=== PATIENT | male | born 1965 | race American Indian/Alaskan Native ===

== ENCOUNTER 2017-04-05 12:22 | Emergency (ER) | payer OTHER ==
--- NOTE | 2017-04-05 14:16 | Emergency Department Report ---
Entered by BRANDIE MALAVE, acting as scribe for LAURITA VALDIVIA PA. Chief Complaint: Abdominal Pain Stated Complaint: ABD/BACK/PAIN Time Seen by Provider: 04/05/17 14:07 - HPI History of Present Illness: Pt c/o intermittent 8/10, aching lower abdominal pain for 2 weeks. Notes 1 emesis episode. Patient also c/o an acute episode of chronic low back pain Reports urinary urgency. Denies frequency. Reports nausea. Denies diarrhea. Denies any chest pain or shortness of breath. Denies penile discharge Denies chest pain and SOB. 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 Denies having a PCP - ROS Review of Systems: All system are negative unless stated in HPI above. - Exam Vital Signs: Vital Signs 04/05/17 13:13 Temperature 98.2 F Pulse Rate 60 Respiratory 18 Rate Blood Pressure 129/84 O2 Sat by Pulse 99 Oximetry Physical Exam: General: well nourished, well developed, 51 year old male in no acute distress and nontoxic in appearance Abdomen: Soft, normal bowel sounds in all quadrants and negative CVA tenderness bilaterally. Tender to palpation below naval. No guarding or rebound. Lungs: Clear to auscultation bilaterally, no rhonchi, wheezes, or rales. Normal work of breathing. No use of accessory muscles Cardiovascular: S1-S2, regular rate, regular rhythm. No murmurs. MSE screening note: Focused history and physical exam performed. Due to findings the following was ordered: see below ED Medical Decision Making - Medical Decision Making MDM: Patient screened by provider in triage area. Appropriate protocol initiated. Patient to be seen by MD on main ED side. ED Disposition for MSE Condition: Stable This documentation as recorded by the scribe,BRANDIE MALAVE,accurately reflects the service I personally performed and the decisions made by me,LAURITA VALDIVIA PA.
[2017-04-05 15:01] LABS: Basophils % (Auto) 0.4 % (0.0-1.8); Eosinophils % (Auto) 0.9 % (0.0-4.3); Hematocrit 51.8 % (35.5-45.6); Hemoglobin 17.1 gm/dl (11.8-15.2); Mean Corpuscular HGB Conc 33 % (32-34); Mean Corpuscular Hemoglobin 33 pg (28-32); Mean Corpuscular Volume 98 fl (84-94); Platelet Count 223 K/mm3 (140-440); Red Blood Count 5.27 M/mm3 (3.65-5.03); Red Cell Distribution Width 14.7 % (13.2-15.2); White Blood Count 5.4 K/mm3 (4.5-11.0)
[2017-04-05 15:22] LABS: Alanine Aminotransferase 12 units/L (7-56); Albumin 4.5 g/dL (3.9-5); Albumin/Globulin Ratio 1.4 %; Alkaline Phosphatase 62 units/L (35-129); Anion Gap 15 mmol/L; BUN/Creatinine Ratio 11.66; Blood Urea Nitrogen 14 mg/dL (9-20); Calcium 9.4 mg/dL (8.4-10.2); Carbon Dioxide 30 mmol/L (22-30); Glucose 83 mg/dL (75-100); Lipase 93 units/L (13-60); Potassium 4.3 mmol/L (3.6-5.0); Sodium 141 mmol/L (137-145); Total Protein 7.8 g/dL (6.3-8.2)
[2017-04-05 15:44] LABS: Bilirubin,Urine NEG (Negative); Blood,Urine NEG (Negative); Ketones,Urine NEG (Negative); Leukocyte Esterase,Urine NEG (Negative); Mucus,Urine FEW /HPF; Nitrite,Urine NEG (Negative); Protein,Urine <15 mg/dL mg/dL (Negative); Urobilinogen,Urine < 2.0 mg/dL (<2.0); WBC,Urine < 1.0 /HPF (0.0-6.0)
[2017-04-05] MEDS ORDERED: NACL 0.9% 1000 ML 1,000 ML IV ONE ×2 (17:57→18:01)
[2017-04-05] MEDS ORDERED: MORPHINE IV ONE (17:57)
[2017-04-05] MEDS ORDERED: ZOFRAN IV ONE ×2 (17:57→18:01)
--- NOTE | 2017-04-05 18:06 | Emergency Department Report ---
ED Abdominal Pain HPI - General Chief Complaint: Abdominal Pain Stated Complaint: ABD/BACK/PAIN Time Seen by Provider: 04/05/17 17:51 Source: patient, family Mode of arrival: Ambulatory Limitations: No Limitations - History of Present Illness MD Complaint: abdominal pain -: Gradual, week(s) (two) Location: diffuse Radiation: back Migration to: no migration Severity: moderate Severity scale (0 -10): 6 Quality: sharp Associated Symptoms: nausea, vomiting. denies: diarrhea - Related Data Home Medications Medication Instructions Recorded Confirmed Last Taken Carisoprodol [Soma] 250 mg PO DAILY 04/28/15 04/05/17 Unknown Oxycodone HCl [OxyCONTIN ER TAB] 30 mg PO Q4-6H 04/28/15 04/05/17 Unknown Previous Rx's Medication Instructions Recorded Last Taken Type Hydrocodone/Ibuprofen [Vicoprofen 1 each PO QHS #10 tablet 04/28/15 Unknown Rx 7.5-200 mg TAB] methOCARBAMOL [Robaxin TAB] 500 mg PO BID #20 tab 04/28/15 Unknown Rx Ondansetron [Zofran Odt] 4 mg PO Q4-6H PRN #14 tab.rapdis 04/05/17 Unknown Rx traMADol [Ultram 50 MG tab] 50 mg PO Q4HR PRN #14 tablet 04/05/17 Unknown Rx Allergies Allergy/AdvReac Type Severity Reaction Status Date / Time No Known Allergies Allergy Unverified 04/28/15 14:52 ED Review of Systems ROS: Stated complaint: ABD/BACK/PAIN Other details as noted in HPI Comment: All other systems reviewed and negative Constitutional: denies: chills, fever Respiratory: denies: cough, shortness of breath Cardiovascular: denies: chest pain Gastrointestinal: abdominal pain, nausea, vomiting, constipation. denies: diarrhea, hematochezia Neurological: denies: headache, weakness, numbness ED Past Medical Hx - Past Medical History Previous Medical History?: Yes Hx Liver Disease: Yes (HEP C) Hx Renal Disease: Yes Additional medical history: L1-L2 HERNIATED DISC - Surgical History Past Surgical History?: Yes Additional Surgical History: liver - Social History Smoking Status: Never Smoker Substance Use Type: Alcohol - Medications Home Medications: Home Medications Medication Instructions Recorded Confirmed Last Taken Type Carisoprodol [Soma] 250 mg PO DAILY 04/28/15 04/05/17 Unknown History Hydrocodone/Ibuprofen [Vicoprofen 1 each PO QHS #10 tablet 04/28/15 04/05/17 Unknown Rx 7.5-200 mg TAB] Oxycodone HCl [OxyCONTIN ER TAB] 30 mg PO Q4-6H 04/28/15 04/05/17 Unknown History methOCARBAMOL [Robaxin TAB] 500 mg PO BID #20 tab 04/28/15 04/05/17 Unknown Rx Ondansetron [Zofran Odt] 4 mg PO Q4-6H PRN #14 tab.rapdis 04/05/17 Unknown Rx traMADol [Ultram 50 MG tab] 50 mg PO Q4HR PRN #14 tablet 04/05/17 Unknown Rx ED Physical Exam - General Limitations: No Limitations General appearance: alert, in no apparent distress - Head Head exam: Present: atraumatic - Neck Neck exam: Present: normal inspection. Absent: meningismus - Respiratory Respiratory exam: Present: normal lung sounds bilaterally. Absent: wheezes, rales, rhonchi - Cardiovascular Cardiovascular Exam: Present: regular rate, normal rhythm, normal heart sounds - GI/Abdominal GI/Abdominal exam: Present: soft, tenderness, hypoactive bowel sounds. Absent: distended, guarding, rebound, rigid, mass, pulsatile mass, hernia - Back Exam Back exam: Present: normal inspection. Absent: tenderness - Neurological Exam Neurological exam: Present: alert, oriented X3, CN II-XII intact - Skin Skin exam: Present: warm, dry ED Course Vital Signs 04/05/17 04/05/17 04/05/17 13:13 17:03 17:04 Temperature 98.2 F Pulse Rate 60 Respiratory 18 Rate Blood Pressure 129/84 O2 Sat by Pulse 99 97 99 Oximetry 04/05/17 04/05/17 04/05/17 17:07 17:09 17:11 Temperature Pulse Rate Respiratory Rate Blood Pressure 151/90 151/90 151/90 O2 Sat by Pulse 96 97 97 Oximetry 04/05/17 04/05/17 04/05/17 17:13 17:15 17:16 Temperature Pulse Rate Respiratory 18 Rate Blood Pressure 151/90 152/92 O2 Sat by Pulse 95 97 99 Oximetry 04/05/17 04/05/17 04/05/17 17:17 17:19 17:21 Temperature Pulse Rate Respiratory Rate Blood Pressure 152/92 152/92 152/92 O2 Sat by Pulse 97 96 98 Oximetry 04/05/17 04/05/17 04/05/17 17:23 17:25 17:27 Temperature Pulse Rate Respiratory Rate Blood Pressure 152/92 152/92 152/92 O2 Sat by Pulse 97 97 97 Oximetry 04/05/17 04/05/17 04/05/17 17:29 17:30 17:33 Temperature Pulse Rate Respiratory Rate Blood Pressure 152/92 153/90 153/90 O2 Sat by Pulse 96 98 98 Oximetry 04/05/17 04/05/17 04/05/17 17:35 17:37 18:30 Temperature Pulse Rate Respiratory Rate Blood Pressure 153/90 153/90 157/97 O2 Sat by Pulse 99 98 81 L Oximetry 04/05/17 04/05/17 04/05/17 18:33 18:35 18:37 Temperature Pulse Rate Respiratory Rate Blood Pressure 157/97 157/97 157/97 O2 Sat by Pulse 98 96 96 Oximetry 04/05/17 04/05/17 04/05/17 18:39 18:41 18:43 Temperature Pulse Rate Respiratory Rate Blood Pressure 157/97 157/97 157/97 O2 Sat by Pulse 97 98 97 Oximetry 04/05/17 04/05/17 04/05/17 18:45 18:47 18:49 Temperature Pulse Rate Respiratory Rate Blood Pressure 160/100 160/100 161/93 O2 Sat by Pulse 96 96 97 Oximetry 04/05/17 04/05/17 04/05/17 18:51 18:53 18:55 Temperature Pulse Rate Respiratory Rate Blood Pressure 161/93 161/93 161/93 O2 Sat by Pulse 97 96 97 Oximetry 04/05/17 04/05/17 04/05/17 18:57 18:59 19:00 Temperature Pulse Rate Respiratory Rate Blood Pressure 161/93 161/93 149/94 O2 Sat by Pulse 98 95 97 Oximetry 04/05/17 04/05/17 04/05/17 19:03 19:04 19:07 Temperature Pulse Rate Respiratory Rate Blood Pressure 149/94 161/93 149/94 O2 Sat by Pulse 95 95 95 Oximetry 04/05/17 04/05/17 04/05/17 19:09 19:11 19:13 Temperature Pulse Rate Respiratory Rate Blood Pressure 149/94 149/94 149/94 O2 Sat by Pulse 97 93 96 Oximetry 04/05/17 04/05/17 04/05/17 19:15 19:17 19:19 Temperature Pulse Rate Respiratory Rate Blood Pressure 137/92 137/92 149/94 O2 Sat by Pulse 93 95 95 Oximetry 04/05/17 04/05/17 04/05/17 19:21 19:23 19:25 Temperature Pulse Rate Respiratory Rate Blood Pressure 149/94 149/94 149/94 O2 Sat by Pulse 96 94 96 Oximetry 04/05/17 04/05/17 04/05/17 19:27 19:29 19:30 Temperature Pulse Rate Respiratory Rate Blood Pressure 149/94 149/94 131/88 O2 Sat by Pulse 94 95 94 Oximetry 04/05/17 04/05/17 04/05/17 19:33 19:35 19:37 Temperature Pulse Rate Respiratory Rate Blood Pressure 131/88 131/88 131/88 O2 Sat by Pulse 96 96 95 Oximetry 04/05/17 04/05/17 04/05/17 19:39 19:41 19:43 Temperature Pulse Rate Respiratory Rate Blood Pressure 131/88 131/88 131/88 O2 Sat by Pulse 98 97 96 Oximetry 04/05/17 04/05/17 04/05/17 19:45 19:47 19:49 Temperature Pulse Rate Respiratory Rate Blood Pressure 140/94 140/94 140/94 O2 Sat by Pulse 95 95 96 Oximetry 04/05/17 04/05/17 04/05/17 19:51 19:53 19:55 Temperature Pulse Rate Respiratory Rate Blood Pressure 140/94 140/94 140/94 O2 Sat by Pulse 95 97 97 Oximetry 04/05/17 04/05/17 04/05/17 19:57 19:59 20:00 Temperature Pulse Rate Respiratory Rate Blood Pressure 140/94 140/94 132/87 O2 Sat by Pulse 96 96 96 Oximetry 04/05/17 04/05/17 04/05/17 20:03 20:05 20:07 Temperature Pulse Rate Respiratory Rate Blood Pressure 132/87 132/87 132/87 O2 Sat by Pulse 95 98 96 Oximetry 04/05/17 04/05/17 04/05/17 20:09 20:11 20:13 Temperature Pulse Rate Respiratory Rate Blood Pressure 132/87 132/87 132/87 O2 Sat by Pulse 97 96 94 Oximetry 04/05/17 04/05/17 04/05/17 20:15 20:17 20:18 Temperature Pulse Rate Respiratory Rate Blood Pressure 128/86 128/86 128/86 O2 Sat by Pulse 94 97 95 Oximetry 04/05/17 04/05/17 04/05/17 20:46 20:49 20:51 Temperature Pulse Rate Respiratory Rate Blood Pressure 128/86 146/95 146/95 O2 Sat by Pulse 95 98 Oximetry 04/05/17 04/05/17 04/05/17 20:53 20:55 21:02 Temperature Pulse Rate Respiratory Rate Blood Pressure 146/95 146/95 146/95 O2 Sat by Pulse 96 97 98 Oximetry 04/05/17 04/05/17 04/05/17 21:05 21:07 21:09 Temperature Pulse Rate Respiratory Rate Blood Pressure 136/92 136/92 136/92 O2 Sat by Pulse 98 97 98 Oximetry 04/05/17 04/05/17 04/05/17 21:11 21:13 21:15 Temperature Pulse Rate Respiratory Rate Blood Pressure 136/92 136/92 148/94 O2 Sat by Pulse 95 98 98 Oximetry 04/05/17 04/05/17 21:17 21:19 Temperature Pulse Rate Respiratory Rate Blood Pressure 148/94 148/94 O2 Sat by Pulse 97 97 Oximetry - Reevaluation(s) Reevaluation #1: 04/05/17 22:17 Patient stated that he is feeling much better no abdominal pain at this moment. ED Medical Decision Making - Lab Data Result diagrams: 04/05/17 14:41 04/05/17 14:41 Critical care attestation.: If time is entered above; I have spent that time in minutes in the direct care of this critically ill patient, excluding procedure time. ED Disposition Clinical Impression: Abdominal pain, Gall stone Disposition: DC-01 TO HOME OR SELFCARE Is pt being admited?: No Does the pt Need Aspirin: No Condition: Stable Instructions: Biliary Colic (ED) Prescriptions: Ondansetron [Zofran Odt] 4 mg PO Q4-6H PRN #14 tab.rapdis PRN Reason: Nausea And Vomiting traMADol [Ultram 50 MG tab] 50 mg PO Q4HR PRN #14 tablet PRN Reason: Pain Referrals: PRIMARY CARE, [Primary Care Provider] - 3-5 Days
[2017-04-05] MEDS ORDERED: NACL ONE (18:32)
--- NOTE | 2017-04-05 21:27 | Cat Scan Report ---
FINAL REPORT PROCEDURE: CT ABDOMEN PELVIS W CON TECHNIQUE: Computerized axial tomography of the abdomen and pelvis was performed after the IV injection of iodinated nonionic contrast. HISTORY: Abdominal Pain COMPARISON: No prior studies are available for comparison. FINDINGS: Visualized lower thorax: No significant abnormality. Liver: Normal size and attenuation. Spleen: Normal size and attenuation. Gallbladder and biliary system: There are multiple stones within the gallbladder. No dilatation of the biliary ductal system. Pancreas: Normal. Adrenals: Normal. Kidneys: Both kidneys have a normal size. No hydronephrosis. No renal stones or masses.. GI tract: The stomach is normal. The small bowel has a normal caliber. No obstruction, ileus or enteritis. The cecum, appendix and colon are normal.. Lymph nodes and mesentery: Normal. Vasculature: Normal. Bladder: Normal. Reproductive organs: Normal. Peritoneum: No free fluid. Musculoskeletal structures: No significant abnormality. Other: None. IMPRESSION: There is no evidence of intestinal or urinary tract obstruction. No ileus or enteritis. The appendix is normal. Cholelithiasis. No dilatation of the biliary ductal system.
[2017-04-05 22:33] VITALS: BP 139/93
== END 2017-04-05 22:33 | disposition home or self-care (01) ==
LOC: ED 12:22
DX: K80.80 Other cholelithiasis without obstruction (principal)
CPT/HCPCS: 36415; 74177; 80053; 81001; 83690; 85025; 87086; 93005; 93010; 96361; 96374; 96375; 99284; J2270; J2405; J7030; Q9967

== ENCOUNTER 2021-07-28 21:36 | Emergency (ER) | payer SELFPAY ==
[2021-07-28 21:40] VITALS: BP 141/84
[2021-07-29] MEDS ORDERED: oxyCODONE /ACETAMINOPHEN 5-325MG TAB PO ONE (00:29)
[2021-07-29] MEDS ORDERED: KETOROLAC 60 MG/2 ML INJ IM ONE (00:29)
[2021-07-29] MEDS ORDERED: ONDANSETRON 4 MG ODT TAB PO ONE (00:29)
[2021-07-29] MEDS ORDERED: LIDOCAINE (1%) 10 MG/1 ML VIAL 20 ML MDV INFILTRATI ONE (00:29)
[2021-07-29] MEDS ORDERED: dexAMETHasone 20 MG/5 ML VIAL IM ONE (00:29)
--- NOTE | 2021-07-29 01:57 | Emergency Department Report ---
ED Extremity Problem HPI - General Chief complaint: Extremity Injury, Lower Stated complaint: KNEE PAIN Source: patient Mode of arrival: Ambulatory Limitations: No Limitations - History of Present Illness Initial comments: Patient is a 56-year-old -[place] male with a history of chronic renal disease and hepatitis C who presents to the ED with complaint of acute onset p ersistent nontraumatic right knee pain and swelling for the last 1 week. 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 Patient states that in the last 3 days, the pain and the swelling of worsened and that he can hardly bear weight on the right leg because of worsening right knee pain. Patient denies fever, chills, nausea, vomiting, numbness and tingling or weakness of right leg, dizziness, syncope, back pain, chest pain, hip pain, fall or traumatic injury. MD Complaint: extremity pain (Right knee pain), extremity swelling (right knee pain and swelling), joint swelling (right knee), joint paint (right knee) -: Sudden, week(s) (1) Location: right, lower extremity (knee), knee (right knee) History of Same: Yes -: No myalgia, Yes arthralgia, No fever, No associated dyspnea, No associated chest pain Radiation: distal Severity scale (0 -10): 7 Quality: aching, sharp Consistency: constant Improves with: nothing Worsens with: weight bearing, walking, exertion, palpation Associated Symptoms: denies other symptoms, arthralgias (right knee). denies: chest pain, shortness of breath, fever, myalgias - Related Data Home Medications Medication Instructions Recorded Confirmed Last Taken Carisoprodol [Soma] 250 mg PO DAILY 04/28/15 04/05/17 Unknown Oxycodone HCl [OxyCONTIN ER TAB] 30 mg PO Q4-6H 04/28/15 04/05/17 Unknown Previous Rx's Medication Instructions Recorded Last Taken Type Hydrocodone/Ibuprofen [Vicoprofen 1 each PO QHS #10 tablet 04/28/15 Unknown Rx 7.5-200 mg TAB] methOCARBAMOL [Robaxin TAB] 500 mg PO BID #20 tab 04/28/15 Unknown Rx Ondansetron [Zofran Odt] 4 mg PO Q4-6H PRN #14 tab.rapdis 04/05/17 Unknown Rx Acetaminophen [Tylenol] 1,000 mg PO Q8HR PRN #30 tablet 07/29/21 Unknown Rx predniSONE [Deltasone] 40 mg PO QDAY #12 tab 07/29/21 Unknown Rx traMADoL [Ultram 50 MG tab] 50 mg PO Q4HR PRN #15 tablet 07/29/21 Unknown Rx Allergies Allergy/AdvReac Type Severity Reaction Status Date / Time No Known Allergies Allergy Unverified 04/28/15 14:52 ED Review of Systems ROS: Stated complaint: KNEE PAIN Other details as noted in HPI Constitutional: denies: chills, fever Eyes: denies: eye pain, eye discharge, vision change ENT: denies: ear pain, throat pain Respiratory: denies: cough, shortness of breath, wheezing Cardiovascular: denies: chest pain, palpitations Endocrine: no symptoms reported Gastrointestinal: denies: abdominal pain, nausea, diarrhea Genitourinary: denies: urgency, dysuria Musculoskeletal: joint swelling (Right knee pain and mild swelling), arthralgia (Right knee pain and mild swelling). denies: back pain Skin: denies: rash, lesions Neurological: denies: headache, weakness, paresthesias Psychiatric: denies: anxiety, depression Hematological/Lymphatic: denies: easy bleeding, easy bruising ED Past Medical Hx - Past Medical History Previous Medical History?: Yes Hx Liver Disease: Yes (HEP C) Hx Renal Disease: Yes Additional medical history: L1-L2 HERNIATED DISC - Surgical History Additional Surgical History: liver - Social History Smoking Status: Never Smoker Substance Use Type: Alcohol - Medications Home Medications: Home Medications Medication Instructions Recorded Confirmed Last Taken Type Carisoprodol [Soma] 250 mg PO DAILY 04/28/15 04/05/17 Unknown History Hydrocodone/Ibuprofen [Vicoprofen 1 each PO QHS #10 tablet 04/28/15 04/05/17 Unknown Rx 7.5-200 mg TAB] Oxycodone HCl [OxyCONTIN ER TAB] 30 mg PO Q4-6H 04/28/15 04/05/17 Unknown History methOCARBAMOL [Robaxin TAB] 500 mg PO BID #20 tab 04/28/15 04/05/17 Unknown Rx Ondansetron [Zofran Odt] 4 mg PO Q4-6H PRN #14 tab.rapdis 04/05/17 Unknown Rx Acetaminophen [Tylenol] 1,000 mg PO Q8HR PRN #30 tablet 07/29/21 Unknown Rx predniSONE [Deltasone] 40 mg PO QDAY #12 tab 07/29/21 Unknown Rx traMADoL [Ultram 50 MG tab] 50 mg PO Q4HR PRN #15 tablet 07/29/21 Unknown Rx ED Physical Exam - General Limitations: No Limitations General appearance: alert, in no apparent distress - Head Head exam: Present: atraumatic, normocephalic, normal inspection - Eye Eye exam: Present: normal appearance, PERRL, EOMI Pupils: Present: normal accommodation - ENT ENT exam: Present: normal exam, normal orophraynx, mucous membranes moist, TM's normal bilaterally, normal external ear exam - Neck Neck exam: Present: normal inspection, full ROM - Respiratory Respiratory exam: Present: normal lung sounds bilaterally. Absent: respiratory distress, wheezes, rales, rhonchi, chest wall tenderness, accessory muscle use, decreased breath sounds - Cardiovascular Cardiovascular Exam: Present: regular rate, normal rhythm, normal heart sounds. Absent: systolic murmur, diastolic murmur, rubs, gallop - GI/Abdominal GI/Abdominal exam: Present: soft, normal bowel sounds. Absent: distended, tenderness, guarding, rigid, hyperactive bowel sounds, hypoactive bowel sounds, organomegaly - Extremities Exam Extremities exam: Present: normal inspection, full ROM (Limited range of motion due to pain of right knee), tenderness (Palpable right knee tenderness with mild swelling and limited range of motion due to pain), normal capillary refill, joint swelling (Right knee swelling mildly and tenderness with limited range of motion due to pain). Absent: calf tenderness - Back Exam Back exam: Present: normal inspection, full ROM. Absent: tenderness, CVA tenderness (R), CVA tenderness (L), muscle spasm, paraspinal tenderness, vertebral tenderness - Neurological Exam Neurological exam: Present: alert, oriented X3, CN II-XII intact, normal gait, motor sensory deficit, reflexes normal - Psychiatric Psychiatric exam: Present: normal affect, normal mood - Skin Skin exam: Present: warm, dry, intact, normal color. Absent: rash ED Course Vital Signs 07/28/21 21:37 Temperature 98.1 F Pulse Rate 76 Respiratory 16 Rate Blood Pressure 141/84 [Right] O2 Sat by Pulse 100 Oximetry ED Medical Decision Making - Medical Decision Making This is a 56-year-old -[place] male with a history of chronic renal disease and hepatitis C who presents to the ED with complaint of acute onset persistent nontraumatic right knee pain and swelling for the last 1 week. 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 Patient states that in the last 3 days, the pain and the swelling of worsened and that he can hardly bear weight on the right leg because of worsening right knee pain. In the ED, patient is alert and oriented x3 and is not in any distress. Patient is hemodynamically stable. Patient was treated for pain in the ED and on reevaluation, patient's pain is well controlled medications. Patient will discharge home on pain medications and advised to follow-up with his primary care physician in 5 to 7 days for reevaluation or return to the ED immediately if symptoms get worse. - Differential Diagnosis Right knee sprain; muscle strain right knee; osteoarthritis; tendinitis; Critical care attestation.: If time is entered above; I have spent that time in minutes in the direct care of this critically ill patient, excluding procedure time. ED Disposition Clinical Impression: Patellar tendinitis of right knee Sprain of right knee Qualifiers: Encounter type: initial encounter Involved ligament of knee: unspecified ligament Qualified Code(s): S83.91XA - Sprain of unspecified site of right knee, initial encounter Degenerative joint disease of right knee Qualifiers: Osteoarthritis type: primary Qualified Code(s): M17.11 - Unilateral primary osteoarthritis, right knee Disposition: 01 HOME / SELF CARE / HOMELESS Is pt being admited?: No Does the pt Need Aspirin: No Condition: Stable Instructions: Arthritis, [id number], Knee Sprain, Adult, [id number], Patellar Tendinitis Rehab-SportsMed, Tendinitis, [id number] Additional Instructions: Take medication with food, drink plenty of fluids and follow-up with your primary care physician in 7 to 10 days for reevaluation. Return to the ED immediately if symptoms get worse. Prescriptions: Acetaminophen [Tylenol] 1,000 mg PO Q8HR PRN #30 tablet PRN Reason: Pain , Severe (7-10) predniSONE [Deltasone] 40 mg PO QDAY #12 tab traMADoL [Ultram 50 MG tab] 50 mg PO Q4HR PRN #15 tablet PRN Reason: Pain Referrals: [facility] [Provider Group] - 7-10 days Forms: Work/School Release Form(ED) Time of Disposition: 01:59 Print Language: MOHAWK
== END 2021-07-29 02:42 | disposition home or self-care (01) ==
LOC: ED 21:36
DX: S83.91XA Sprain of unspecified site of right knee, initial encounter (principal); M76.51 Patellar tendinitis, right knee; M17.11 Unilateral primary osteoarthritis, right knee; N18.9 Chronic kidney disease, unspecified; X58.XXXA Exposure to other specified factors, initial encounter; Y93.89 Activity, other specified; Y92.89 Other specified places as the place of occurrence of the external cause; Y99.8 Other external cause status
CPT/HCPCS: 96372; 99282; J1100; J1885; J3490; Q0162